=== PATIENT | female | born 1945 | race Caucasian/White ===

== ENCOUNTER → 2024-02-01 06:37 | Day surgery (SDC) | payer MEDICARE, SELFPAY | LOC: GI 06:37 | PROVIDERS: ATTENDING PHYSICIAN Surgery; FAMILY PHYSICIAN Family Medicine | DX: R19.4 Change in bowel habit (principal); K57.30 Diverticulosis of large intestine without perforation or abscess without bleeding; Z98.0 Intestinal bypass and anastomosis status; D12.2 Benign neoplasm of ascending colon; D12.3 Benign neoplasm of transverse colon | CPT/HCPCS: 45385; 88305 ==

== ENCOUNTER 2024-02-15 22:33 | Observation (INO) | payer MEDICARE, SELFPAY ==
[2024-02-15 15:47] VITALS: BP 196/76; BMI 30.9
[2024-02-15 18:25] VITALS: BP 193/91
[2024-02-15 18:35] VITALS: BP 193/91
[2024-02-15] MEDS: MORPHINE SULFATE 2 MG IV (19:03)
[2024-02-15] MEDS: ZOFRAN 4 MG IV (19:04)
[2024-02-15 19:16] LABS: % Basophils 0.3 % (0-2); % Immature Granulocytes 1.4 % (0-0.5); % Lymphocytes 13.4 % (20.5-51.1); % Monocytes 2.2 % (1.7-9.3); % Neutrophils 82.7 % (42.2-75.2); Absolute Immature Granulocytes 0.2 10^3/uL (0-0.05); Absolute Lymphocytes 1.5 10^3/uL (1.2-3.4); Absolute Monocytes 0.2 10^3/uL (0.1-0.6); Absolute Neutrophils 9.2 10^3/uL (1.4-6.5); Hematocrit 42.5 % (37.0-47.0); Hemoglobin 14.5 g/dL (12.0-16.0); Mean Corp Hgb Conc. 34.1 g/dL (33.0-37.0); Mean Corpuscular Hgb 30.8 pg (27.0-31.0); Mean Corpuscular Volume 90.2 fL (81.0-99.0); Mean Platelet Volume 9.4 fL (7.4-10.4); Nucleated Red Blood Cells % 0 %; Platelet Count 254 10^3/uL (130-400); Red Blood Cell Count 4.71 10^6/uL (4.20-5.40); Red Cell Dist. Width 14.2 % (11.5-14.5); White Blood Cell Count 11.1 10^3/uL (4.8-10.8)
[2024-02-15 19:17] LABS: Urine Albumin Negative (Neg - Trace); Urine Bilirubin Negative (Negative); Urine Character Clear (Clear); Urine Color Yellow; Urine Glucose Negative (Negative); Urine Ketone Negative (Negative); Urine Leukocyte Trace (Negative); Urine Nitrite Negative (Negative); Urine Occult Blood Negative (Negative); Urine Urobilinogen Negative (Neg - 1+)
[2024-02-15 19:24] LABS: Urine Red Blood Cell 0-2 /HPF (0-2); Urine White Cell 0-2 /HPF (0-5)
[2024-02-15 19:36] LABS: Blood Urea Nitrogen 28 mg/dl (7-17); Calcium 10.2 mg/dl (8.4-10.2); Carbon Dioxide 23 mmol/L (22-30); Chloride 105 mmol/L (98-107); Estimated Creatinine Clearance 65 ml/min; Glucose 151 mg/dl (70-99); Sodium 140 mmol/L (135-145); eGFR > 60.00
[2024-02-15 20:00] VITALS: BP 155/43; BP 171/84
[2024-02-15] MEDS: DILAUDID 0.5 MG IV (20:42)
--- NOTE | 2024-02-15 21:24 | ED.GENMED ---
History of Present Illness
General
Chief Complaint: Back Pain
Source: patient
Exam Limitations: none
Time Seen by Provider: 02/15/24 18:19
Nursing documentation reviewed up to this point in time: agreed with
History of Present Illness
History of Present Illness:
Patient to ED with complaint of low back pain. States symptoms started 2 weeks ago after her colonoscopy. No abdominal pain. No fever/chills. States pain is worse with movement. Now having difficulty with ADL's due to pain. Brought to eD by
friend for eval. No bowel or bladder issues. No weakness in extremities, No saddle paresthesia. Lives alone
Past History
Past History
ED Past Medical History: Asthma, CVA (hemorrhagic stroke in 2007), HTN and Other (diverticulitis,? TIA in 2018); Negative Renal failure (acute renal insufficiency January 2021)
ED Past Surgical History: Appendectomy
Social History
Tobacco: Former smoker
Alcohol: Occasional
Drug: None
Personal:
Living: alone
Family History
Family History: Other (reviewed and noncontributory)
Review of Systems
Review of Systems
Allergies reviewed?: Yes
All Other Systems: ROS reviewed and negative except as documented in HPI and ROS
Constitutional: Reports no symptoms
EENT: Reports no symptoms
Respiratory: Reports no symptoms
Cardiac: Reports no symptoms
ABD/GI: Reports no symptoms
: Reports no symptoms
Musculoskeletal: Reports back pain (low back pain)
Skin: Reports no symptoms
Neurological: Reports no symptoms
Psychiatric: Reports no symptoms
Phy Exam
General Physical Exam
General Presentation: well appearing and mild distress
General age: appears stated age
General Skin: warm and dry
General Habitus: normal
General Mental: alert
General Hydration: appears well hydrated
Cardiovascular Exam
Cardiovascular Exam: regular rate/rhythm
Gastrointestinal Exam
Gastrointestinal Exam: normal bowel sounds, non tender, soft, no organomegaly, non distended and no cva tenderness
Musculoskeletal Exam
Musculoskeletal Exam: back pain (Low back pain) and neuro vasc intact
Skin Exam
Skin Exam: normal color and warm/dry
Psychiatric Exam
Psychiatric Exam: normal mood/affect
Course
Orders/Labs/Results
Orders:
Orders
02/15/24 18:38
Morphine Sulfate 2 mg IV NOW STA
Ondansetron Injectable [Zofran] 4 mg IV NOW STA
02/15/24 19:03
Basic Metabolic Panel Urgent
Complete Blood Count/With Diff Urgent
Urinalysis Reflex To Culture Urgent
Date Specimen was Collected: 02/15/24
Time Specimen was Collected: 18:41
Urine Microscopic Reflex Cult Urgent
02/15/24 19:42
Lumbar Spine Complete, 4 View [CR Lumbar Spine Comp Min 4 Vw*] Urgent
Comment:
Reason For Exam: pain
02/15/24 20:32
HYDROmorphone [Dilaudid] 0.5 mg IV NOW STA
02/15/24 21:55
Admit/Transfer Patient As Directed
Co-Sign Provider:
Level of Care: Observation services
Assign to:: Medical/Surgical
Physician / Group: [email or web address]
Diagnosis: Intractable LBP, acute gait dysfunction, acute FTT at home
02/15/24 22:00
Code Status As Directed
Resuscitation Status: Full Code
Abnormal Lab Results
02/15/24
19:03
WBC 11.1 H 10^3/uL
(4.8-10.8)
Abs Immat Gran (auto) 0.2 H 10^3/uL
(0-0.05)
Absolute Neuts (auto) 9.2 H 10^3/uL
(1.4-6.5)
Immature Gran % 1.4 H %
(0-0.5)
Neutrophils % 82.7 H %
(42.2-75.2)
Lymphocytes % 13.4 L %
(20.5-51.1)
BUN 28 H mg/dl
(7-17)
Glucose 151 H mg/dl
(70-99)
Leukocyte Esterase Rfl Trace A
(Negative)
02/15/24 19:03
02/15/24 19:03
Vital Signs
Initial and Last Documented VS:
Initial Vital Signs
Temp Pulse Resp BP Pulse Ox
97.9 F 82 16 196/76 97
02/15/24 15:47 02/15/24 15:47 02/15/24 15:47 02/15/24 15:47 02/15/24 15:47
Last Documented Vital Signs
Temp Pulse Resp BP Pulse Ox
97.9 F 58 21 185/56 93
02/15/24 15:47 02/15/24 22:30 02/15/24 22:30 02/15/24 22:15 02/15/24 22:30
*Radiology
Radiology exam reviewed: radiology read reviewed
*Pulse Oximetry
Patient hypoxic: no
*Critical Care Note
Total Time (30-74mins, 75-104mins- exclusive of procedures): Not Applicable
Update Note
Update Note:
Some improvement with IV dilaudid. Unable to transfer, ambuate wtihout assistance due to low back pain. She lives alone an does not feel that she can care for self. Will admit to hospitalist for pain control. PT eval
ED Attending Note
-
Portions of this chart may have been created with voice recognition software.� Occasional wrong word or��sound alike� substitutions may have occurred due to the inherent limitations of voice recognition software.
Discharge Plan
Departure
Patient Disposition: Admit
Date of Disposition: 02/15/24
Time of Disposition: 21:32
Presentation/result/management discussed w/ accepting MD/DO: Hospitalist
Condition: Fair
Covid-19: Not Applicable
Discharge Problem:
Low back pain, Ambulatory dysfunction
Interventions
Interventions:
*Risk Screen - Suicide Last Done: 02/15/24 15:47
*General Assessment Last Done: 02/15/24 18:35
*Neglect/Abuse Screening Last Done: 02/15/24 15:47
ED- Fall Risk Assessment Last Done: 02/15/24 15:47
*ED COVID-19 Vaccine History Last Done: 02/15/24 18:35
ED-Musculoskeletal Assessment Last Done: 02/15/24 18:39
Musculoskeletal Injury Exam
Musculoskeletal Injury Exam
Bilateral Lower Back:
Pain with Movement?: Moderate
Tender to palpation?: Moderate
Soft tissue swelling?: None
External deformity and angulation?: None
Joint effusion?: None
Contusion?: None
Strain- Sprain- Tear (Connective tissue injury)?: Moderate
Crepitus with movement?: No
Joint instability?: No
Malalignment/deformity?: No
Range of motion: Limited
Distal skin color and temperature: normal-warm & good color
Capillary Refill: normal
Normal distal neurovascular exam?: Yes
--- NOTE | 2024-02-15 21:50 | HPS.HSE ---
Family Physician
-
Family Physician: Lance Stokes
Chief Complaint
-
Low back pain
History of Present Illness
78F Lives alone BIB friend HX HTN, prior CVA with residual Rt -sided weakness, use RW at home , mild intermittent asthma, recurrent diverticulitis (most recent admission 10/12) with enterocolic fistula s/p robotic assisted sigmoidectomy in 2020
seen at ER for evalaution of LBP
Low back pain
- onset 2 weeks ago following colonoscopy
- Denied trauma
- increased pain with movements
- Unable to do ADL and unable to ambulate due to LBP
- Denied red flag signs such as bowel or bladder issues. No weakness in extremities, No saddle paresthesia.
Medical History
Past Medical History
Past Medical History: Reports Other
Additional Past Medical History:
Asthma
CVA (hemorrhagic stroke in 2007) with residual Rt -sided weakness
Chr ambulatory dysfunction - use RW at home post CVA
HTN
Diverticulitis
? TIA in 2018
Past Surgical History: Reports Other
Additional Past Surgical History:
Appendectomy
s/p sigmoidectomy
Social History
Tobacco: Non-smoker
Alcohol: Occasional
Living: Alone
Family History
Family History: Not pertinent
Allergies / Home Medications
Allergies reflects when Allergies were last updated in [employer].
Home Medications with original date entered in [employer]
Allergy/Medication List:
Allergies
Allergy/AdvReac Type Severity Reaction Status Date / Time
penicillin V Allergy Hives Verified 02/15/24 15:54
10-12 yrs
ago, MILD
no
anaphylaxis;
OK w/ ceph
saccharin Allergy Anaphylaxis-Throat Verified 02/15/24 15:54
closed
Home Medications
aspirin 81 mg tablet,delayed release 81 mg PO DAILY Blood clot prevention/tx 09/03/20
levothyroxine 50 mcg tablet 50 mcg PO DAILY@0700 Thyroid 09/03/20
loratadine 10 mg tablet 10 mg PO DAILY Allergies 09/03/20
omega 9-xca-tvt-fish oil 300 mg-1,000 mg capsule (Fish Oil) 1 ea PO BID Supplement 09/08/20
Saccharomyces boulardii 250 mg capsule 250 mg PO DAILY 02/18/21
acetaminophen 650 mg tablet,extended release 650 mg PO BIDPRN PRN mild pain/fever 02/15/24
amlodipine 5 mg tablet 5 mg PO DAILY 02/15/24
atorvastatin 10 mg tablet 10 mg PO QPM 02/15/24
benzonatate 100 mg capsule 100 - 200 mg PO TIDPRN PRN cough 02/15/24
cholecalciferol (vitamin D3) 50 mcg (2,000 unit) tablet 50 mcg PO DAILY 02/15/24
fluticasone propionate 50 mcg/actuation nasal spray,suspension 2 spray intranasal DAILY 02/15/24
furosemide 40 mg tablet 40 mg PO DAILY 02/15/24
onabotulinumtoxinA 100 unit solution for injection (Botox) 0 unit SC .UNKNOWN 02/15/24
prednisone 20 mg tablet 20 mg PO DAILY 02/15/24
tizanidine 4 mg tablet 4 mg PO DAILY 02/15/24
valsartan 320 mg tablet 320 mg PO DAILY 02/15/24
Review of Systems
-
Constitutional: Reports No Symptoms
EENT: Reports No Symptoms
Respiratory: Reports No Symptoms
Cardiac: Reports No Symptoms
Abdomen/GI: Reports No Symptoms
: Reports No Symptoms
Musculoskeletal: Reports See HPI
Skin: Reports No Symptoms
Neurological: Reports No Symptoms
Endocrine: Reports No Symptoms
Hematologic/Lymphatic: Reports No Symptoms
Psych: Reports No Symptoms
Physical Exam
Vital Signs
Vital Signs
Temp Pulse Resp BP Pulse Ox
97.9 F 77 12 155/43 93
02/15/24 15:47 02/15/24 18:35 02/15/24 18:35 02/15/24 20:00 02/15/24 20:15
Physical Exam
General: Well Nourished, No Apparent Distress (when lying still ), Conversant and Obese (BMI 30.9 )
HEENT: NormoCephalic, Anicteric and Moist mucous membranes
Respiratory: Clear
Cardiac: S1/S2 and Regular Rhythm; No Murmur
Breast: Deferred by me
GI: Soft, Non Tender, Non Distended and Normal Bowel Sounds
Genito-urinary: Deferred by me
Musculoskeletal: No Edema
Neuro: AO x 3, No Motor Deficits (no acute , no sensory defict ) and Other (chr Rt sided residaul weakness in Veda s/p CVA )
Laboratory Results
-
02/15/24 19:03
02/15/24 19:03
Laboratory Results
Total Bilirubin Cancelled 02/15/24 19:03
AST Cancelled 02/15/24 19:03
ALT Cancelled 02/15/24 19:03
Alkaline Phosphatase Cancelled 02/15/24 19:03
Data Reviewed
-
Diagnostic Radiology: Report Reviewed by me
Lab Data: Labs Reviewed by me
Impression/Plan
-
Reviewed VS: BP 190/90 ---> 155/45 POx low 90s on RA
Data
WCC 11s
BUN 28
nl eGFR
BG 150
NEG UA
XR Lx spine
Chronic degenerative changes of the lumbar spine. No radiographic evidence for an acute osseous abnormality.
ASSESSMENT & PLAN
Pending Rx reconciliation
Intractable LBP ( Rt > Lt ) without any red flag signs
- No bowel or bladder issues. No weakness in extremities, No saddle paresthesia.
- No pain radiatio from the back
- acute FTT at home : Elderly who lives alone with acute on chronic ambulatory dysfunction
- Unable to transfer and ambulate without assistance due to low back pain
- Supportive care: narcotics pain control with hold for excessive sedation
- add gabapentin hold for excessive sedation
- add Medrol dose pack
- BW and Bladder regime
- PT/OT consult
HX prior CVA with residual Rt -sided weakness
- chr ambulatory dysfunction - use RW at h
Essential HTN
- Hi BP due to pain
- cont OP Meds after Rx reconciliation
HLD
- cont Statin
HX Hypothyroidism
- cont LT4
DVT Px: LMWH
Code: Full code
OP MS
[2024-02-15 22:15] VITALS: BP 185/56
[2024-02-15 22:33] VITALS: BMI 30.7
[2024-02-15 23:00] VITALS: BP 170/59
[2024-02-15] MEDS: SENOKOT 17.2 MG PO (23:57)
[2024-02-15] MEDS: NEURONTIN 100 MG PO (23:57)
[2024-02-15] MEDS: COLACE 100 MG PO (23:57)
[2024-02-15] MEDS: NORVASC 5 MG PO (23:58)
[2024-02-16] VITALS (12 sets, daily range): BP systolic 115–179; BP diastolic 48–84; PULSE 66; O2SAT 92; BMI 30.7; BMI 31.7
[2024-02-16] MEDS: MEDROL 24 MG PO (00:04)
[2024-02-16] MEDS: TYLENOL 650 MG PO ×6 (00:07→23:00)
[2024-02-16] MEDS: TYLENOL PO (05:41)
[2024-02-16] MEDS: SYNTHROID 50 MCG PO (06:29)
[2024-02-16] MEDS: ROXICODONE 5 MG PO (06:38)
--- NOTE | 2024-02-16 07:25 | W.PN.HOSP.TC ---
Addendum entered and electronically signed by Juan A Smith MD 02/16/24 11:29:
I saw and evaluated the patient. I reviewed the resident�s note and agree with findings and plan as documented in the resident�s note.
Patient presented with back pain that has been progressing since February 01, 2024 after colonoscopy. Denies bowel or bladder incontinence or saddle anesthesia.
Gen: NAD, AAOx3.
Eyes: EOMI, PERRLA, no scleral icterus.
Neck: supple.
CV: RRR, +S1/S2, no m/r/g.
Resp: CTAB, no rales, wheezes, or rhonchi.
Abd: +BS, soft, NT, ND
Skin: No rashes.
Neuro: CN 2-12 intact
Psych: Normal mood and affect.
L-spine Xray: Chronic degenerative changes of the lumbar spine. No radiographic evidence for an acute osseous abnormality.
Low back pain:
-Progressively worsening over the last 15 days without alarm symptoms
-Agree with Medrol Dosepak
-No indication for narcotics, stop narcotics
-Neurontin started
-Tylenol as needed
-No further indication for hospitalization, medically cleared for discharge, case management aware.
Original Note:
Today's Communication/Plan
-
Continue pain management
Assessment / Plan
Assessment / Plan
# Intractable LBP ( Rt > Lt ) without any red flag signs
- No bowel or bladder issues. No weakness in extremities, No saddle paresthesia.
- No pain radiation from the back
- XR Lx spine
Chronic degenerative changes of the lumbar spine. No radiographic evidence for an acute osseous abnormality.
- Supportive care: narcotics pain control with hold for excessive sedation
- Oxy 5mg po q4 prn
- IV dilaudid 0.25 q4 prn
- Methylprednisone taper dose
- Gabapentin continue
- Consideration for updated lumbar MRI
# Elderly who lives alone with acute on chronic ambulatory dysfunction
- Unable to transfer and ambulate without assistance due to low back pain
- PT/OT consult
#HX prior CVA with residual Rt -sided weakness
- chr ambulatory dysfunction - use RW at home
#Essential HTN
- elevated-likely due to pain
- cont OP Meds after Rx reconciliation
#HLD
- cont Statin
# Hypothyroidism
- cont levothyroxine
Code: Full code
DVT prophylaxis: Heparin
Anticipated Discharge: Within 24 hours
Subjective/Interval History
-
Date of Service: February 16, 2024
Objective Data
-
Labs:
Laboratory Results
02/15/24
19:03
Sodium 140
Potassium
Chloride 105
Carbon Dioxide 23
BUN 28 H
Creatinine 0.8
Glucose 151 H
Calcium 10.2
Total Bilirubin Cancelled
AST Cancelled
ALT Cancelled
Alkaline Phosphatase Cancelled
Vital Signs:
Vital Signs
Temp Pulse Resp BP Pulse Ox
97.9 F 78 18 115/49 92
02/15/24 15:47 02/16/24 00:00 02/16/24 00:00 02/16/24 04:00 02/16/24 04:30
Review of Systems
-
History Source: Patient and Other
Constitutional: Reports Other (Low back pain); Denies Fever or Weight Loss
Respiratory: Denies Cough
Cardiac: Denies Chest Pain
Abdomen/GI: Denies Abdominal Pain
Musculoskeletal: Reports Muscle Weakness (Chronic right lower extremity)
Skin: Denies Rash
Neuro: Denies Dizzy or Headache
Hematologic / Lymphatic: Denies Bleeding
Physical Exam
-
General: Well Developed, Well Nourished and Appears in Distress
HEENT: Normocephalic and Atraumatic
Respiratory: Clear to Auscultation
Cardiac: Regular Rhythm
GI: Soft, Nontender and Nondistended
Musculoskeletal: Other (Pain with lumbar flexion, extension and axial rotation. Tender to touch in the lower thoracic upper lumbar spine.)
Skin: Warm and Dry
Neuro: Awake, Alert, Oriented and Central Nerve's Intact; Negative Tremors, Facial Droop or Other (Chronic diffuse decrease sensation of the right leg, decreased strength right leg)
Psych: Calm
Data Reviewed
-
Diagnostic Radiology: Image personally visualized and interpreted, Report Reviewed by me, Discussed with Physician and Discussed with Patient
Labs: Labs Reviewed by me, Discussed with Physician and Discussed with Patient
[2024-02-16] MEDS: NEURONTIN 100 MG PO ×3 (07:47→23:00)
[2024-02-16] MEDS: ASPIR LOW (ENTERIC COATED) 81 MG PO (07:47)
[2024-02-16] MEDS: DIOVAN 320 MG PO (07:47)
[2024-02-16] MEDS: HEPARIN 5000 UNITS SC ×2 (07:47→20:25)
[2024-02-16] MEDS: LIPITOR 10 MG PO (07:47)
[2024-02-16] MEDS: LASIX 40 MG PO (07:47)
[2024-02-16] MEDS: COLACE 100 MG PO (07:48)
[2024-02-16] MEDS: SENOKOT PO ×2 (07:49→20:27)
[2024-02-16] MEDS: MEDROL 20 MG PO (09:31)
--- NOTE | 2024-02-16 11:43 | CM ---
Addendum entered by David Salmon 02/16/24 16:05:
Per [facility], [facility] provided pending authorization. Pt's clinical faxed to [facility] and per [facility] director of infection control they will fax pt's clinical to [facility] to obtain a full auth.
D/C plan: [facility] when a full auth is obtained.
Addendum entered by David Salmon 02/16/24 15:29:
[facility] denied a referral
[facility] is out of network and will be $240.00 co-pay for day 1-40.
[facility] and [facility] offered a bed.
CM discussed it with the pt and pt preferred [facility].
An auth is initiated with [facility] for SNF level of care at [facility] ( ), accepting MD Luisa Cruz ( ). CM spoke to [facility] CYRIL Kitchen and pt is approved for 10 initial days for SNF level of care at [facility] starting
today 02/16/24 till 02/25/24, Auth is [id number]. [facility] CM stated that pt can be discharged to [facility] today.
CM spoke to [facility] director of infection control and she would like to confirm insurance auth with [facility] and she will let me know.
D/C plan: [facility].
CM will follow to assist pt with discharge to [facility].
Original Note:
CM following re: discharge planning.
CM consulted to assist pt with discharge planning.
Reviewed pt's chart, met with pt and pt's son and pt's daughter at bedside.
Pt is an 78 year old female, admitted with OBS status and primary dx of back pain. OBS status explained to the pt, pt expressed her understanding. BOOTH letter signed, placed in CM folder, pt has a copy.
Pt reports she lives alone in [facility] apartment, 4th floor with elevator, no steps to enter, has 4 supportive children. Pt reports she ambulates with a walker and now she cannot do it and needs to go to rehab facility.
PT evaluation noted - SNF level of care recommended. Both pt and her family expressed their agreement. A list of SNFs from medicare.gov provided. Pt reprts she was before at [facility] and she did not have a good experience. Following SNFs
preferred: [facility], [facility], [facility], [facility]. A referral to above SNFs made. Awaiting for determination. pt will need an auth from [facility] medicare for skilled services at accepted SNF.
PCP: Lance Stokes
Pharmacy: [facility] pharmacy;
D/C plan: preferred and accepted SNF. Awaiting for determination.
CM will follow to assists pt with discharge to an accepted SNF.
--- NOTE | 2024-02-16 15:45 | PTCARENOTE ---
Received pt from ER. Pt awake, alert and oriented x3. Pt c/o pain in right lower back, tolerable at this time. Pt bp elevated, other VSS, 95% on RA.Spoke with MD orders for IV hydralazine, given per orders repeat bp improved to 137/66. Pt oriented
to room, call martinez within reach, plan of care continues.
[2024-02-16] MEDS: APRESOLINE 10 MG IV (17:11)
[2024-02-16] MEDS: COLACE PO (20:27)
[2024-02-16] MEDS: NORVASC 5 MG PO (23:00)
[2024-02-17] MEDS: TYLENOL 650 MG PO ×3 (04:22→14:12)
[2024-02-17] MEDS: SYNTHROID 50 MCG PO (04:23)
--- NOTE | 2024-02-17 07:09 | W.PN.HOSP.TC ---
Addendum entered and electronically signed by Juan A Smith MD 02/17/24 13:19:
Total time spent on d/c = 32 min. This included today's physical exam, progress note, review of laboratory and diagnostic data, preparation of discharge documents and prescriptions, and discussions about the pt's hospital course and discharge plan
with the patient and other medical staff manager involved in the patient's care.
Addendum entered and electronically signed by Juan A Smith MD 02/17/24 12:22:
I saw and evaluated the patient. I reviewed the resident�s note and agree with findings and plan as documented in the resident�s note.
Patient presented with back pain that has been progressing since February 01, 2024 after colonoscopy. Denies bowel or bladder incontinence or saddle anesthesia.
Gen: NAD, AAOx3.
Eyes: EOMI, PERRLA, no scleral icterus.
Neck: supple.
CV: RRR, +S1/S2, no m/r/g.
Resp: CTAB, no rales, wheezes, or rhonchi.
Abd: +BS, soft, NT, ND
Skin: No rashes.
Neuro: CN 2-12 intact
Psych: Normal mood and affect.
L-spine Xray: Chronic degenerative changes of the lumbar spine. No radiographic evidence for an acute osseous abnormality.
Low back pain:
-Progressively worsening over the last 15 days without alarm symptoms
-Agree with Medrol Dosepak
-No indication for narcotics (which have been stopped)
-Neurontin started, can uptitrate in 1-2 days
-Tylenol as needed (can change to standing)
-remains medically cleared for discharge, case management aware.
Original Note:
Today's Communication/Plan
-
[facility] when a full auth is obtained.
Assessment / Plan
Assessment / Plan
# Intractable LBP ( Rt > Lt ) without any red flag signs
- No bowel or bladder issues. No weakness in extremities, No saddle paresthesia.
- No pain radiation from the back
- XR Lx spine
Chronic degenerative changes of the lumbar spine. No radiographic evidence for an acute osseous abnormality.
- Supportive care continue
- Methylprednisone taper dose
- Gabapentin continue
- Tylenol as needed
# Elderly who lives alone with acute on chronic ambulatory dysfunction
- Unable to transfer and ambulate without assistance due to low back pain
- PT/OT input appreciated- recs for skilled rehab
#HX prior CVA with residual Rt -sided weakness
- chr ambulatory dysfunction - use RW at home
#Essential HTN
- elevated-likely due to pain
- cont OP Meds after Rx reconciliation
#HLD
- cont Statin
# Hypothyroidism
- cont levothyroxine
Code: Full code
DVT prophylaxis: Heparin
Anticipated Discharge: Today
Subjective/Interval History
-
Date of Service: February 17, 2024
Objective Data
-
Labs:
Laboratory Results
02/17/24
06:00
WBC Pending
Hgb Pending
Hct Pending
Plt Count Pending
Vital Signs:
Vital Signs
Temp Pulse Resp BP Pulse Ox
99.7 F 74 14 155/61 93
02/16/24 23:37 02/16/24 23:37 02/16/24 23:37 02/16/24 23:37 02/16/24 23:37
Review of Systems
-
History Source: Patient
Constitutional: Reports Other (Low back pain.)
Respiratory: Denies Cough
Cardiac: Denies Chest Pain
Abdomen/GI: Denies Abdominal Pain
Musculoskeletal: Denies Joint Pain
Neuro: Denies Dizzy
Hematologic / Lymphatic: Denies Bleeding
Physical Exam
-
General: Well Developed, Well Nourished and Appears in Distress (LBP with ambulation)
HEENT: Normocephalic and Atraumatic
Respiratory: Clear to Auscultation
Cardiac: Regular Rhythm
GI: Soft, Nontender and Nondistended
Skin: Warm and Dry
Neuro: Awake, Alert and Oriented
Psych: Calm
Data Reviewed
-
Labs: Labs Reviewed by me, Discussed with Physician and Discussed with Patient
[2024-02-17 07:25] VITALS: BP 148/67
[2024-02-17 08:01] LABS: Hematocrit 41.6 % (37.0-47.0); Mean Corp Hgb Conc. 33.7 g/dL (33.0-37.0); Mean Corpuscular Hgb 31.6 pg (27.0-31.0); Mean Corpuscular Volume 93.9 fL (81.0-99.0); Mean Platelet Volume 9.8 fL (7.4-10.4); Platelet Count 260 10^3/uL (130-400); Red Blood Cell Count 4.43 10^6/uL (4.20-5.40); Red Cell Dist. Width 14.5 % (11.5-14.5); White Blood Cell Count 11.3 10^3/uL (4.8-10.8)
[2024-02-17] MEDS: NEURONTIN 100 MG PO (09:41)
[2024-02-17] MEDS: SENOKOT 17.2 MG PO (09:42)
[2024-02-17] MEDS: LASIX 40 MG PO (09:42)
[2024-02-17] MEDS: COLACE 100 MG PO (09:42)
[2024-02-17] MEDS: LIPITOR 10 MG PO (09:42)
[2024-02-17] MEDS: ASPIR LOW (ENTERIC COATED) 81 MG PO (09:42)
[2024-02-17] MEDS: HEPARIN 5000 UNITS SC (09:43)
[2024-02-17] MEDS: DIOVAN 320 MG PO (10:09)
[2024-02-17 11:15] VITALS: BP 123/68
--- NOTE | 2024-02-17 11:47 | CM ---
Bianca is ready for discharge to [facility] today. SNF authorization is pending and anticipated to be finalized this afternoon. Ambulance transport requested for 3:00/4:00 pm.
I met with Bianca to discuss plans; she was hoping to be able to stay at [facility] and have therapy at [facility]. We discussed the different rehabs and I explained to Bianca that [facility] would require at least 3 hours of therapy per day.
With her back pain it would be difficult for her to be able to do 3 hours. Bianca agreed, stating she thought it would be more convenient for her family if she was at the hospital.
Bianca is agreeable to transfer to [facility] today. I called her daughter, also Bianca, to provide the address and telephone number for [facility], and also advised that ambulance transportation for her mother is anticipated around
3pm-4pm today.
Plan: Discharge to [facility]
Report: [phone]
--- NOTE | 2024-02-17 11:52 | W.DCSUMMARY ---
Addendum entered and electronically signed by Juan A Smith MD 02/17/24 13:32:
Read, reviewed, and agree. See same day progress note for additional details.
Original Note:
Discharge Summary
Discharge Data
Date of Admission: 02/15/24
Date of Discharge: 02/17/24
-
Pending Results: No
Hospital Course
Discharging Physician : Aleksandr Bradley MD ; Juan A Smith MD
Disposition : alf facility
Primary care physician : Lance Stokes MD
Principal Discharge diagnosis : Intractable LBP ( Rt > Lt ),
Chronic Discharge diagnosis : Chronic ambulatory dysfunction, hypertension, hyperlipidemia, hypothyroidism, history of CVA with residual right-sided weakness, history of KATHERINE, asthma
Hospital Course: 78-year-old female with history of TIA, CVA and chronic right-sided weakness presented to the emergency department with complaints of sudden onset low back pain. She reports she does have a history of lumbar disc herniations.
Patient reported that the recent low back pain started after she had colonoscopy and thinks she was laying in a wrong position. She denied any trauma. Denied any red flags including bowel and bladder issues. There is no saddle paresthesia on exam
during his stay at the hospital. Initially she was given narcotics occluding oxycodone and Dilaudid for pain control. However she was started on a steroid taper dose and gabapentin. She was provided with instructions upon discharge. PT/OT was
also consulted and the recommendation was to consider skilled rehab to progress functional strength, balance and endurance. It was considered reasonable to reduce fall risk and facilitate safe eventual return to home. Patient verified
understanding. Her condition at this time does not warrant any further imaging studies. She has been declared medically stable for discharge to SNF at this time.
Important imaging findings : CR Lumbar Spine:
Chronic degenerative changes of the lumbar spine. No radiographic evidence for an acute osseous abnormality.
Discharge Plan
-
Patient Disposition: [facility]/SNF
Discharge Diagnosis/Procedures: Intractable LBP ( Rt > Lt ), chronic ambulatory dysfunction, hypertension, hyperlipidemia, hypothyroidism, history of CVA with residual right-sided weakness, asthma
Condition: Good
Diet: Low Cholesterol
Activity: As tolerated
Driving Restrictions: As prior to admission
Bathing Restrictions: None
Other Services: PT and OT
Referrals:
Lance Stokes MD [Family Provider] - in less than 1 week
Additional Discharge Medication Instructions: Take Tylenol 325 mg 1-2 tablet by mouth every 4 hours while awake
P gabapentin 100 mg capsule by mouth 3 times a day
Take methylprednisolone 4 mg 3 tablets on 02/18/2024
Take methylprednisolone 4 mg 2 tablets by mouth on 02/19/2024
Take methylprednisolone 4 mg 1 tablet by mouth on 02/20/2024
Take tamsulosin 0.4 mg capsule daily
Prescriptions:
New
acetaminophen 325 mg Tablet
650 mg PO Q4HWA Qty: 0 0RF
tamsulosin 0.4 mg Capsule
0.4 mg PO DAILYPRN PRN (Reason: bladder scan volume > 400 mL) Qty: 0 0RF
methylprednisolone 4 mg Tablet
12 mg PO ONCE Qty: 0 0RF
Rx Instructions:
02/18/24
gabapentin 100 mg Capsule
100 mg PO TID Qty: 0 0RF
methylprednisolone 4 mg Tablet
8 mg PO ONCE Qty: 0 0RF
Rx Instructions:
02/19/24
methylprednisolone 4 mg Tablet
4 mg PO ONCE Qty: 0 0RF
Rx Instructions:
02/20/24
Continued
aspirin 81 MG tablet,delayed release (DR/EC)
81 mg PO DAILY
levothyroxine 50 MCG tablet
50 mcg PO DAILY@0700
loratadine 10 MG tablet
10 mg PO DAILYPRN PRN (Reason: allergies)
omega 6-xzw-vbf-fish oil [Fish Oil] 1 EACH capsule
1 ea PO DAILY
furosemide 40 mg tablet
40 mg PO DAILY
atorvastatin 10 mg tablet
10 mg PO DAILY
tizanidine 4 mg tablet
4 mg PO HS
Botox 100 unit recon soln
5 unit SC [id number]
amlodipine 5 mg tablet
5 mg PO HS
acetaminophen 650 mg Tablet Extended Release
650 mg PO BIDPRN PRN (Reason: mild pain/fever)
valsartan 320 mg tablet
320 mg PO DAILY
fluticasone propionate 50 mcg/actuation [place],Suspension
2 spray INTRANASAL DAILY
cholecalciferol (vitamin D3) 50 mcg (2,000 unit) Tablet
50 mcg PO DAILY
Discontinued
prednisone 20 mg tablet
20 mg PO DAILY
Patient Comments:
02/15/2024: For 4 more days. pt was on a small taper 2 tabs daily for 5 days, then 1 tab daily for 5 days.
Discharge Orders:
Discharge Patient (As Directed); Ordered 02/17/24
Ordered By: Juan A mSith
Discharge Date and Time
Print Language: HUNGARIAN
--- NOTE | 2024-02-17 13:13 | CM ---
Authorization for transfer to [facility] has been obtained. Ambulance transport scheduled for 4pm transfer. Pt's daughter called and provided her with the address and phone number for [facility].
I spoke with Bianca who is nervous going to a facility that she does not know. Support provided.
Plan: Discharge to [facility] today via ambulance at 4pm today.
[facility] authorization [id number]
Report: [phone]
[2024-02-17] MEDS: MEDROL 16 MG PO (14:12)
[2024-02-17 14:15] VITALS: BP 121/67
== END 2024-02-17 16:24 ==
LOC: 4 EAST ACU 22:33
PROVIDERS: Nurse Practitioner; ADMITTING PHYSICIAN Internal Medicine; ATTENDING PHYSICIAN Internal Medicine; EMERGENCY PHYSICIAN Student in an Organized Health Care Education/Training Program; FAMILY PHYSICIAN Family Medicine
DX: M47.816 Spondylosis without myelopathy or radiculopathy, lumbar region (principal); M54.9 Dorsalgia, unspecified; J45.20 Mild intermittent asthma, uncomplicated; I10 Essential (primary) hypertension; G89.29 Other chronic pain; I69.351 Hemiplegia and hemiparesis following cerebral infarction affecting right dominant side; I70.0 Atherosclerosis of aorta; R62.7 Adult failure to thrive; E03.9 Hypothyroidism, unspecified; E78.5 Hyperlipidemia, unspecified; R26.2 Difficulty in walking, not elsewhere classified; Z60.2 Problems related to living alone; Z87.891 Personal history of nicotine dependence; Z87.19 Personal history of other diseases of the digestive system; Z90.49 Acquired absence of other specified parts of digestive tract; Z88.0 Allergy status to penicillin; Z79.82 Long term (current) use of aspirin; Z79.890 Hormone replacement therapy; Z79.52 Long term (current) use of systemic steroids
CPT/HCPCS: 72110; 80048; 81003; 81015; 85025; 85027; 96374; 96375; 99284; G0378

== ENCOUNTER → 2024-09-05 12:51 | Outpatient (REF) | payer MEDICARE, SELFPAY | LOC: RCS 12:51 | PROVIDERS: ATTENDING PHYSICIAN Family Medicine | DX: R07.9 Chest pain, unspecified (principal); R06.02 Shortness of breath; E78.2 Mixed hyperlipidemia; I10 Essential (primary) hypertension; Z86.73 Personal history of transient ischemic attack (TIA), and cerebral infarction without residual deficits | CPT/HCPCS: 71046; 93306 ==

== ENCOUNTER 2025-03-08 15:15 | Inpatient (IN) | payer OTHER, SELFPAY ==
[2025-03-08] VITALS (10 sets, daily range): BP systolic 145–200; BP diastolic 57–124; BMI 28.3
[2025-03-08 09:57] LABS: Hematocrit 40.8 % (37.0-47.0); Hemoglobin 12.8 g/dL (12.0-16.0); Mean Corp Hgb Conc. 31.4 g/dL (33.0-37.0); Mean Corpuscular Volume 95.1 fL (81.0-99.0); Nucleated Red Blood Cells % 0 %; Platelet Count 215 10^3/uL (130-400); Red Cell Dist. Width 13.9 % (11.5-14.5)
[2025-03-08 10:09] LABS: ALT (SGPT) 14 U/L (0-35); AST (SGOT) 15 U/L (14-36); Albumin 4.4 g/dl (3.5-5.0); Alkaline Phosphatase 66 U/L (38-126); Blood Urea Nitrogen 28 mg/dl (7-17); Calcium 9.2 mg/dl (8.4-10.2); Carbon Dioxide 27 mmol/L (22-30); Chloride 107 mmol/L (98-107); Estimated Creatinine Clearance 50 ml/min; Glucose 117 mg/dl (70-99); Magnesium 2.1 mg/dl (1.6-2.3); Potassium 4.1 mmol/L (3.5-5.1); Sodium 143 mmol/L (135-145); Total Protein 6.9 g/dl (6.3-8.2); eGFR 56.60
--- NOTE | 2025-03-08 12:54 | ED.GENMED ---
History of Present Illness
General
Chief Complaint: Headache
Source: patient and ambulance crew
Time Seen by Provider: 03/08/25 09:46
Nursing documentation reviewed up to this point in time: agreed with
History of Present Illness
History of Present Illness:
Note:
CHIEF COMPLAINT(S)
Severe headache and history of stroke with right-sided weakness.
HISTORY OF PRESENT ILLNESS
The patient is an 79-year-old female presenting with a severe headache that began on Tuesday. The headache is located at the back of the head and is described as extremely severe. The patient mentioned, 'the head is terrible.' There is no new
weakness reported, although the patient has a history of being paralyzed on the right side due to a previous stroke. The patient took one Tylenol Arthritis (650 mg) at approximately 7:30 to 8:00 AM for the headache. The patient is also on baby
aspirin, which she took with her other morning medications.
PAST MEDICAL AND SURGICAL HISTORY
The patient has a history of stroke, leading to paralysis on the right side. Surgical history includes an appendectomy approximately 40 to 50 years ago and gallbladder removal around three years ago due to cholelithiasis.
REVIEW OF SYSTEMS
- Neurological: Severe headache at the back of the head; known right-sided weakness due to prior stroke.
- Musculoskeletal: Right-sided weakness; difficulty moving the right leg due to previous paralysis.
PHYSICAL EXAM
General: Alert, in no acute distress.
Cardiovascular: Heart rate 59 beats per minute; normal S1 and S2 heart sounds, no murmurs.
Respiratory: Lungs clear bilaterally, no respiratory distress.
Musculoskeletal: Mild weakness of the right upper extremity and left lower extremity due to previous paralysis.
Neurological: Cranial nerves II to XII intact except for noted mild right-sided weakness from past medical history.
PLAN
- A computed tomography (CT) scan of the head to evaluate the cause of the headache.
- Administer appropriate medication for headache relief.
DIFFERENTIAL DIAGNOSIS
The Differential Diagnosis includes, in no particular order and is not limited to:
1. Tension headache
2. Migraine headache
3. Cerebrovascular accident (CVA) or transient ischemic attack (TIA)
4. Cerebral hemorrhage
5. Meningitis
6. Brain tumor
7. Sinusitis
8. Medication overuse headache
9. Temporal arteritis
10. Hypertension-related headache
CARE-UPDATE
03/08/25 - 13:56
Intractable headache, normal ct angiography head and neck.
Disposition:
SUMMARY OF ENCOUNTER
The patient, an 79-year-old female with a history of stroke and right-sided weakness, presented to the emergency department with a severe headache. The headache started on Tuesday and is localized at the back of the head, described as extremely
severe. The patient has a known history of paralysis on the right side but reported no new weakness. A CT head and neck angiography was performed, showing no acute findings. Due to the persistence of the headache and the severity of symptoms, the
patient is admitted to the hospital for further evaluation and management.
DISPOSITION
Admit
ASSESSMENT
Intractable headache potentially linked to past chemotherapy treatments.
INDEPENDENT REVIEW OF LABS AND INTERPRETATION OF TESTS
- My independent interpretation of CT head and neck angiography reveals no acute findings.
PLAN
- The patient is admitted to the hospital for further evaluation and management due to severe intractable headache.
MEDICATION RECONCILIATION
The patient took acetaminophen (Tylenol) arthritis (650 mg) and is also on a regimen of daily aspirin.
MEDICAL DECISION MAKING
- Complexity of Data Reviewed: Chronic conditions affecting care include a history of stroke and right-sided weakness. The differential diagnosis considered includes tension headache, migraine headache, cerebrovascular accident (CVA) or transient
ischemic attack (TIA), cerebral hemorrhage, meningitis, brain tumor, sinusitis, medication overuse headache, temporal arteritis, and hypertension-related headache.
- Data:
Category 1: The CT head and neck angiography was reviewed and showed no acute findings.
Category 3: Discussion of management with hospitalist for admitting the patient.
DIAGNOSIS
- Intractable headache (R51.9)
- History of cerebrovascular accident (I69.351)
Past History
Past History
ED Past Medical History: Asthma, CVA (hemorrhagic stroke in 2007), HTN and Other (diverticulitis,? TIA in 2018); Negative Renal failure (acute renal insufficiency January 2021)
ED Past Surgical History: Appendectomy
Social History
Tobacco: Former smoker
Alcohol: Occasional
Drug: None
Personal:
Living: alone
Family History
Family History: Other (reviewed and noncontributory)
Phy Exam
Physical Exam
Physical Exam:
.
Course
Orders/Labs/Results
Orders:
Orders
03/08/25 09:30
EKG [Electrocardiogram (*1)] Urgent
Reason for Study: Vertigo / Dizzy
03/08/25 09:31
EKG- Treatment ONCE
03/08/25 09:41
Complete Blood Count/With Diff Urgent
Comprehensive Metabolic Panel Urgent
Magnesium Urgent
03/08/25 10:07
CT Head & Neck Angio W/wo IV Urgent
Comment:
Reason For Exam: headache, neck pain 3 days
Cardiac Monitoring- Treatment ONCE
IV Insert/Care/Rem.- Treatment PRN
03/08/25 10:08
Electrocardiogram (*1) Stat
Reason for Study: Other
Other Reason for Exam: neuro symptoms
EKG- Treatment ONCE
03/08/25 12:53
Diphenhydramine [Benadryl] 25 mg IV NOW STA
Metoclopramide [Reglan] 5 mg IV NOW STA
03/08/25 13:54
Diphenhydramine [Benadryl] 25 mg IV NOW STA
Morphine Sulfate 2 mg IV NOW STA
Abnormal Lab Results
03/08/25
09:41
MCHC 31.4 L g/dL
(33.0-37.0)
Lymphocytes % 19.7 L %
(20.5-51.1)
BUN 28 H mg/dl
(7-17)
Glucose 117 H mg/dl
(70-99)
03/08/25 09:41
03/08/25 09:41
Vital Signs
Initial and Last Documented VS:
Initial Vital Signs
Pulse Resp Pulse Ox
75 20 93
03/08/25 09:28 03/08/25 09:28 03/08/25 09:28
Last Documented Vital Signs
Temp Pulse Resp BP Pulse Ox
97.6 F 113 20 177/69 96
03/08/25 13:44 03/08/25 13:44 03/08/25 13:44 03/08/25 13:44 03/08/25 13:44
*Pulse Oximetry
SaO2: 92
Oxygen Mode of Delivery: Room air
Patient hypoxic: no
*Critical Care Note
Total Time (30-74mins, 75-104mins- exclusive of procedures): Not Applicable
ED Attending Note
-
Portions of this chart may have been created with voice recognition software.� Occasional wrong word or��sound alike� substitutions may have occurred due to the inherent limitations of voice recognition software.
Discharge Plan
Departure
Patient Disposition: Admit
Date of Disposition: 03/08/25
Time of Disposition: 13:55
Admit to: Telemetry
Presentation/result/management discussed w/ accepting MD/DO: Hospitalist
Patient with high blood pressure during this ER visit?: Yes
Condition: Fair
Discharge Problem:
Acute intractable headache
Prescriptions:
No Action
aspirin 81 MG tablet,delayed release (DR/EC)
81 mg PO DAILY
levothyroxine 50 MCG tablet
50 mcg PO DAILY@0700
loratadine 10 MG tablet
10 mg PO DAILYPRN PRN (Reason: allergies)
omega 1-ejk-vph-fish oil [Fish Oil] 1 EACH capsule
1 ea PO DAILY
furosemide 40 mg tablet
20 mg PO DAILY
atorvastatin 10 mg tablet
10 mg PO DAILY
tizanidine 4 mg tablet
4 mg PO HS
Botox 100 unit recon soln
5 unit SC [id number]
amlodipine 5 mg tablet
5 mg PO HS
acetaminophen 650 mg Tablet Extended Release
650 mg PO BIDPRN PRN (Reason: mild pain/fever)
valsartan 320 mg tablet
320 mg PO DAILY
fluticasone propionate 50 mcg/actuation [place],Suspension
2 spray INTRANASAL DAILY
cholecalciferol (vitamin D3) 50 mcg (2,000 unit) Tablet
50 mcg PO DAILY
Referrals:
Lance Stokes MD [Family Provider, Family Practice]
Interventions
Interventions:
*Risk Screen - Suicide Last Done: 03/08/25 09:31
*General Assessment Last Done: 03/08/25 09:31
*Neglect/Abuse Screening Last Done: 03/08/25 09:31
*ED- Fall Risk Assessment Last Done: 03/08/25 09:31
*ED COVID-19 Vaccine History Last Done: 03/08/25 09:31
ED- Neurological Assessment Last Done: 03/08/25 09:31
Discharge Date and Time
Print Language: WELSH
[2025-03-08] MEDS: REGLAN 5 MG IV (13:32)
[2025-03-08] MEDS: BENADRYL 25 MG IV ×2 (13:32→13:59)
--- NOTE | 2025-03-08 13:44 | EDRN ---
this RN entered the pts room to administer medications and the pt got very upset and stated, 'What is that medication Reglan that you're giving me because one time i took Gabapentin and i was sick for months', this RN provided medication information
to the patient regarding Reglan and the pt stated, 'If i get a reaction from this I am going to be very upset', this RN asked if the pt still wanted the medication and the pt stated that she did, this RN administered medication with no s/s of
allergic reaction and the pt then stated to this RN, 'I can't go home like this, i still have pain in my head and they don't know what's wrong? that's unacceptable, i have to stay here until my pain is gone or i have to be admitted', this RN
notified Dr. Benavidez
--- NOTE | 2025-03-08 14:05 | HPS.HSE ---
Family Physician
-
Family Physician: Lance Stokes
Chief Complaint
-
headache
History of Present Illness
79-year-old female with PMH for CVA, HTN, HLD, hypothyroidism presenting with a severe headache that began on Tuesday. patient stated shooting pain to her right side of the neck. when she moves her head, her pain shoot to the back of the ear. denied
dizzy or syncope. denied fever, chills, cough, congestion. Patient denied any chest pain or short of breath. Patient denied any abdominal pain, nausea, vomiting or diarrhea. Patient denied dysuria hematuria.
CTA negative. Admitting for further management
Medical History
Past Medical History
Past Medical History: Reports Other
Additional Past Medical History:
CVA
Hypertension
Diverticulitis
Hyperlipidemia
C. difficile infection
Hypothyroidism
Coloenteric fistula
Past Surgical History: Reports Other
Additional Past Surgical History:
Appendectomy
Robotic sigmoidectomy
Social History
Tobacco: Non-smoker
Alcohol: None
Drug: None
Personal: Single
Living: Alone
Family History
Family History: Not pertinent
Allergies / Home Medications
Allergies reflects when Allergies were last updated in [facility].
Home Medications with original date entered in [facility]
Allergy/Medication List:
Allergies
Allergy/AdvReac Type Severity Reaction Status Date / Time
penicillin V Allergy Hives Verified 02/15/24 15:54
10-12 yrs
ago, MILD
no
anaphylaxis;
OK w/ ceph
saccharin Allergy Anaphylaxis-Throat Verified 02/15/24 15:54
closed
Home Medications
aspirin 81 mg tablet,delayed release 81 mg PO DAILY Blood clot prevention/tx 09/03/20
levothyroxine 50 mcg tablet 50 mcg PO DAILY@0700 Thyroid 09/03/20
loratadine 10 mg tablet 10 mg PO DAILYPRN PRN allergies 09/03/20
omega 7-dag-uuc-fish oil 300 mg-1,000 mg capsule (Fish Oil) 1 ea PO DAILY Supplement 09/08/20
acetaminophen 650 mg tablet,extended release 650 mg PO BIDPRN PRN mild pain/fever 02/15/24
amlodipine 5 mg tablet 5 mg PO HS Blood Pressure 02/15/24
atorvastatin 10 mg tablet 10 mg PO DAILY High Cholesterol 02/15/24
cholecalciferol (vitamin D3) 50 mcg (2,000 unit) tablet 50 mcg PO DAILY Supplement 02/15/24
fluticasone propionate 50 mcg/actuation nasal spray,suspension 2 spray intranasal DAILY Allergies 02/15/24
furosemide 40 mg tablet 20 mg PO DAILY Fluid Retention/Swelling 02/15/24
onabotulinumtoxinA 100 unit solution for injection (Botox) 5 unit SC [id number] Supplement 02/15/24
tizanidine 4 mg tablet 4 mg PO HS Muscle Spasms 02/15/24
valsartan 320 mg tablet 320 mg PO DAILY Blood Pressure 02/15/24
Review of Systems
-
Constitutional: Reports No Symptoms
EENT: Reports No Symptoms
Respiratory: Reports No Symptoms
Cardiac: Reports No Symptoms
Abdomen/GI: Reports No Symptoms
: Reports No Symptoms
Musculoskeletal: Reports No Symptoms
Skin: Reports No Symptoms
Neurological: Reports Headache
Endocrine: Reports No Symptoms
Hematologic/Lymphatic: Reports No Symptoms
Psych: Reports No Symptoms
Physical Exam
Vital Signs
Vital Signs
Temp Pulse Resp BP Pulse Ox
97.6 F 113 20 177/69 96
03/08/25 13:44 03/08/25 13:44 03/08/25 13:44 03/08/25 13:44 03/08/25 13:44
Physical Exam
General: Well Developed, Well Nourished and No Apparent Distress
HEENT: NormoCephalic, Moist mucous membranes and Atraumatic
Respiratory: Clear
Cardiac: S1/S2 and Regular Rhythm; No Murmur or Rub
GI: Soft, Non Tender, Non Distended and Normal Bowel Sounds; No Organomegaly
Rectal: Deferred by Provider
Musculoskeletal: No Clubbing, No Cyanosis and No Edema
Skin: No Rash
Neuro: AO x 3 and Nonfocal/grossly intact
Psych: Calm
Laboratory Results
-
03/08/25 09:41
03/08/25 09:41
Laboratory Results
Total Bilirubin 0.7 mg/dl (0.2-1.3) 03/08/25 09:41
AST 15 U/L (14-36) 03/08/25 09:41
ALT 14 U/L (0-35) 03/08/25 09:41
Alkaline Phosphatase 66 U/L (38-126) 03/08/25 09:41
Data Reviewed
-
CT Scan: Report Reviewed by me
Lab Data: Labs Reviewed by me
Impression/Plan
-
# Intractable headache rule out migraine versus CVA
- CTA head and neck Calcified plaque within both carotid bulbs and proximal ICAs. Likely greater than 50% stenosis on the left.
- Patient received a dose of Benadryl, Reglan, morphine in the ER
- Will obtain MRI
- Aspirin statin continue
- Tylenol p.o. for fever or pain
-consider neuro consult if positive MRI.
#HX prior CVA with residual Rt -sided weakness
- chr ambulatory dysfunction - use RW at home
#Essential HTN
- elevated-likely due to pain
- Norvasc, losartan, furosemide continue
#HLD
- cont Statin
# Hypothyroidism
- cont levothyroxine
Code: Full code
[2025-03-08] MEDS: MORPHINE SULFATE 2 MG IV (14:10)
--- NOTE | 2025-03-08 15:22 | W.PN.UPDATE ---
Update Note
Progress Note Update
This note serves as an addendum to the H&P by lidar scientist Esvinba NIK
HPI�
79F HX CVA, HTN, HLD, hypothyroidism presenting with a severe headache that began on Tuesday.
- shooting pain to her right side of the neck. when she moves her head, her pain shoot to the back of the ear.
- denied dizzy or syncope. denied fever, chills, cough, congestion.
- denied any chest pain or short of breath.
- denied any abdominal pain, nausea, vomiting or diarrhea.
- denied dysuria hematuria.
Relevant�VS:
Temp Pulse Resp BP Pulse Ox
97.6 F 113 20 177/69 96
03/08/25 13:44 03/08/25 13:44 03/08/25 13:44 03/08/25 13:44 03/08/25 13:44
PE
Gen: NAD , not toxic
HEENT: anicteric
Neck: supple , no JVD
Lungs: CTA
Cor: RRR S1 S2
FURNACE CONVERTER: NFND
Psych: anxious
Relevant Data
03/08/25
09:41
MCHC 31.4 L
Lymphocytes % 19.7 L
BUN 28 H
Glucose 117 H
H & N CTA : Calcified plaque within both carotid bulbs and proximal ICAs. Likely greater than 50% stenosis on the left.
ASSESSMENT & PLAN
Intractable headache rule out migraine vs. CVA
- received a dose of Benadryl, Reglan, morphine in the ER
- obtain MRI
- Aspirin statin continue
- Tylenol p.o. for fever or pain
- consider neuro consult if positive MRI.
HX prior CVA with residual Rt -sided weakness
- chr ambulatory dysfunction
- use RW at home
Essential HTN
- elevated-likely due to pain
- Norvasc, losartan, furosemide continue
DVT Px: SCD
Full code
IP MS
--- NOTE | 2025-03-08 15:54 | EDRN ---
this RN called the receiving unit and notified them that paper report was going to be tubed up, this RN also notified the provider of the pts hypertension, no new orders received
--- NOTE | 2025-03-08 16:26 | CM ---
Patient seen bedside in ED. Initial assessment completed. Patient is a 79-year-old female with PMH for CVA, HTN, HLD, hypothyroidism presenting with a severe headache.
Patient lives alone at [facility] apartments. Patient has a 4th floor handicap apartment, no steps, elevator access. Patient is independent w/ the use of a RW. Patient has grab bar and shower chair in the bathroom. Patient was at [facility]
last year for STR, prev known to [facility] last year as well following rehab admission.
Address, points of contact and insurance verified
PCP: Lance Stokes
Pharmacy: [facility]
Plan: CM will cont to follow medical progress for d/c planning
[2025-03-08] MEDS: TYLENOL 650 MG PO (19:12)
--- NOTE | 2025-03-08 19:30 | PTCARENOTE ---
Pt received from day shift RN at 1915. Pt pleasant, AAOx3, VSS, and complains of 10/10 back VIVAS pain. See MAR for pain management. Pt receptive to room and call martinez. Pt bed in lowest position and call martinez within reach. Pt educated on importance of
call martinez usage, pt relays understanding and cooperation. Will continue with current plan of care.
[2025-03-08] MEDS: ZANAFLEX 4 MG PO (21:11)
[2025-03-08] MEDS: NORVASC 5 MG PO (21:15)
[2025-03-09] MEDS: TYLENOL 650 MG PO (02:38)
[2025-03-09] MEDS: SYNTHROID 50 MCG PO (05:44)
[2025-03-09 07:00] VITALS: BP 161/72
[2025-03-09] MEDS: DIOVAN 320 MG PO (07:39)
[2025-03-09] MEDS: ASPIR LOW (ENTERIC COATED) 81 MG PO (07:40)
[2025-03-09] MEDS: LASIX 40 MG PO (07:40)
[2025-03-09] MEDS: LIPITOR 10 MG PO (07:41)
[2025-03-09] MEDS: TORADOL 15 MG IV ×2 (10:02→21:09)
[2025-03-09] MEDS: LIDOCAINE 4% PATCH 1 PATCH TOPICAL (10:30)
[2025-03-09] MEDS: ATIVAN 0.5 MG PO (11:31)
--- NOTE | 2025-03-09 12:05 | W.PN.HOSP.TC ---
Today's Communication/Plan
-
Monitor vital signs
see plan
MRI today
Trial of Toradol
PT
Assessment / Plan
Assessment / Plan
General: Well Developed, Well Nourished and No Apparent Distress
HEENT: NormoCephalic, Moist mucous membranes and Atraumatic
Respiratory: Clear
Cardiac: S1/S2 and Regular Rhythm; No Murmur or Rub
GI: Soft, Non Tender, Non Distended and Normal Bowel Sounds
Musculoskeletal:No Edema
Neuro: AO x 3 and Nonfocal/grossly intact
Psych: Calm
Right-sided headache/ache around upper neck
- CTA head and neck Calcified plaque within both carotid bulbs and proximal ICAs. Likely greater than 50% stenosis on the left. Patient to follow-up with vascular outpatient
Per patient she did not respond well to Benadryl and Reglan in past. try Toradol
- Will obtain MRI
- Aspirin statin continue
- Tylenol p.o. for fever or pain
-consider neuro consult if positive MRI.
#HX prior CVA with residual Rt -sided weakness
- chr ambulatory dysfunction - use RW at home
#Essential HTN
- elevated-likely due to pain
- Norvasc, losartan, furosemide continue
#HLD
- cont Statin
# Hypothyroidism
- cont levothyroxine
Code: Full code
Anticipated Discharge: Within 24 hours
Subjective/Interval History
-
Date of Service: March 09, 2025
has right sided headache/neck pain
Objective Data
-
Vital Signs:
Vital Signs
Temp Pulse Resp BP Pulse Ox
98.1 F 76 18 161/72 93
03/09/25 07:00 03/09/25 07:00 03/09/25 07:00 03/09/25 07:00 03/09/25 07:00
I&O
03/08/25 03/09/25 03/10/25
06:59 06:59 06:59
Intake Total 480 / 480
Balance 480 / 480
[2025-03-09 15:00] VITALS: BP 155/60
[2025-03-09] MEDS: REMOVE LIDOCAINE PATCH 1 PATCH REMOVE (21:09)
[2025-03-09] MEDS: NORVASC 5 MG PO (21:14)
[2025-03-09] MEDS: ZANAFLEX 4 MG PO (21:15)
[2025-03-09 23:03] VITALS: BP 133/62
[2025-03-10] MEDS: SYNTHROID 50 MCG PO (05:30)
[2025-03-10 06:52] LABS: Hematocrit 36.8 % (37.0-47.0); Hemoglobin 12.1 g/dL (12.0-16.0); Mean Corp Hgb Conc. 32.9 g/dL (33.0-37.0); Mean Corpuscular Volume 93.6 fL (81.0-99.0); Platelet Count 205 10^3/uL (130-400); Red Cell Dist. Width 13.5 % (11.5-14.5)
[2025-03-10 07:00] VITALS: BP 151/62
[2025-03-10 07:11] LABS: Blood Urea Nitrogen 25 mg/dl (7-17); Calcium 9.4 mg/dl (8.4-10.2); Carbon Dioxide 27 mmol/L (22-30); Chloride 106 mmol/L (98-107); Estimated Creatinine Clearance 49 ml/min; Glucose 106 mg/dl (70-99); Potassium 4.2 mmol/L (3.5-5.1); Sodium 139 mmol/L (135-145); eGFR 56.60
[2025-03-10] MEDS: LIPITOR 10 MG PO (08:48)
[2025-03-10] MEDS: ASPIR LOW (ENTERIC COATED) 81 MG PO (08:48)
[2025-03-10] MEDS: LASIX 40 MG PO (08:48)
[2025-03-10] MEDS: DIOVAN 320 MG PO (08:48)
[2025-03-10] MEDS: LIDOCAINE 4% PATCH 1 PATCH TOPICAL (08:49)
--- NOTE | 2025-03-10 09:35 | W.PN.HOSP.TC ---
Today's Communication/Plan
-
Monitor vital signs see plan
Symptoms improving
Discharge today
Assessment / Plan
Assessment / Plan
General: Well Developed, Well Nourished and No Apparent Distress
HEENT: NormoCephalic, Moist mucous membranes and Atraumatic
Respiratory: Clear
Cardiac: S1/S2 and Regular Rhythm; No Murmur or Rub
GI: Soft, Non Tender, Non Distended and Normal Bowel Sounds
Musculoskeletal:No Edema
Neuro: AO x 3 and Nonfocal/grossly intact
Psych: Calm
Right-sided headache/ache around upper neck
- CTA head and neck Calcified plaque within both carotid bulbs and proximal ICAs. Likely greater than 50% stenosis on the left. Patient to follow-up with vascular outpatient
Per patient she did not respond well to Benadryl and Reglan in past.
MRI without acute CVA, does show chronic infarct
- Aspirin statin continue
- Tylenol p.o. for fever or pain
Appears musculoskeletal, improving with Toradol
Advised patient to perform heat application and can take NSAID/Tylenol if needed. Advised not to take a lot of NSAIDs
#HX prior CVA with residual Rt -sided weakness
- chr ambulatory dysfunction - use RW at home
#Essential HTN
- elevated-likely due to pain
- Norvasc, losartan, furosemide continue
#HLD
- cont Statin
# Hypothyroidism
- cont levothyroxine
Code: Full code
Anticipated Discharge: Today
Subjective/Interval History
-
Date of Service: March 10, 2025
Pain is improving
Objective Data
-
Labs:
Laboratory Results
03/10/25
06:19
WBC 6.7
Hgb 12.1
Hct 36.8 L
Plt Count 205
Sodium 139
Potassium 4.2
Chloride 106
Carbon Dioxide 27
BUN 25 H
Creatinine 1.0
Glucose 106 H
Calcium 9.4
Vital Signs:
Vital Signs
Temp Pulse Resp BP Pulse Ox
97.8 F 65 18 151/62 95
03/09/25 23:03 03/09/25 23:03 03/09/25 23:03 03/10/25 08:48 03/09/25 23:03
I&O
03/09/25 03/10/25 03/11/25
06:59 06:59 06:59
Intake Total 480 / 480 1560 / 1560
Balance 480 / 480 1560 / 1560
--- NOTE | 2025-03-10 09:39 | W.DCSUMMARY ---
Discharge Summary
Discharge Data
Date of Admission: 03/08/25
Date of Discharge: 03/10/25
-
Pending Results: No
Hospital Course
79-year-old female with past medical history of CVA with residual right-sided weakness, essential hypertension, hyperlipidemia, hypothyroidism came to the hospital with right-sided headache which was also on the right side of his upper neck. CT
initially was done which showed mild calcified plaque within both carotid bulb and proximal ICA. Patient was instructed to follow-up with vascular outpatient. MRI was also done which was negative for CVA. Patient symptoms continue to improve with
Toradol and lidocaine. It was determined that her symptoms could be likely secondary to sprain. Since her symptoms were improving, she was then discharged home with instructions to follow-up with all physicians outpatient.
Discharge Plan
-
Patient Disposition: Home (Routine Discharge)
Discharge Diagnosis/Procedures: Headache
Neck pain
Calcified plaque within both carotid bulb and proximal ICA
Condition: Good
Diet: As tolerated
Activity: As tolerated
Driving Restrictions: As prior to admission
Bathing Restrictions: None
Referrals:
Lance Stokes MD [Family Provider, Family Practice] - in less than 1 week
Colin Lamb MD [Active, Vascular Surgery]
Prescriptions:
New
lidocaine 4 % Adhesive Patch,Medicated
1 patch topical DAILY Qty: 30 0RF
Continued
aspirin 81 MG tablet,delayed release (DR/EC)
81 mg PO DAILY
levothyroxine 50 MCG tablet
50 mcg PO DAILY@0700
loratadine 10 MG tablet
10 mg PO DAILY
omega 2-gfk-gqa-fish oil [Fish Oil] 1 EACH capsule
1 cap PO DAILY
furosemide 40 mg tablet
40 mg PO DAILY
atorvastatin 10 mg tablet
10 mg PO DAILY
tizanidine 4 mg tablet
4 mg PO HS
Botox 100 unit recon soln
5 unit SC [id number]
amlodipine 5 mg tablet
5 mg PO HS
acetaminophen 650 mg Tablet Extended Release
650 mg PO BID
valsartan 320 mg tablet
320 mg PO DAILY
fluticasone propionate 50 mcg/actuation [place],Suspension
2 spray INTRANASAL DAILYPRN PRN (Reason: allergies)
cholecalciferol (vitamin D3) 50 mcg (2,000 unit) Tablet
50 mcg PO DAILY
Discharge Orders:
Discharge Patient (As Directed); Ordered 03/10/25
Ordered By: Moncho Schroeder
Discharge Date and Time
Discharge Date/Time: 03/10/25 12:01
Print Language: WELSH
--- NOTE | 2025-03-10 10:33 | CM ---
Patient for d/c today
No CM needs at this time
Plan: Home, no needs
[2025-03-10 11:00] VITALS: BP 149/61
== END 2025-03-10 12:01 | disposition home or self-care (01) | DRG 552 ==
LOC: 4 WEST ACU 15:15
PROVIDERS: ADMITTING PHYSICIAN Internal Medicine; ATTENDING PHYSICIAN Internal Medicine; EMERGENCY PHYSICIAN Emergency Medicine; FAMILY PHYSICIAN Family Medicine
DX: S13.9XXA Sprain of joints and ligaments of unspecified parts of neck, initial encounter (principal); I69.351 Hemiplegia and hemiparesis following cerebral infarction affecting right dominant side; X58.XXXA Exposure to other specified factors, initial encounter; Y93.9 Activity, unspecified; Y92.9 Unspecified place or not applicable; I65.23 Occlusion and stenosis of bilateral carotid arteries; R51.9 Headache, unspecified; I10 Essential (primary) hypertension; M54.2 Cervicalgia; E78.5 Hyperlipidemia, unspecified; R26.2 Difficulty in walking, not elsewhere classified; E03.9 Hypothyroidism, unspecified; Z60.2 Problems related to living alone; Z90.49 Acquired absence of other specified parts of digestive tract; Z79.82 Long term (current) use of aspirin; Z87.891 Personal history of nicotine dependence; Z79.890 Hormone replacement therapy; Z87.19 Personal history of other diseases of the digestive system; Z88.0 Allergy status to penicillin; Z88.8 Allergy status to other drugs, medicaments and biological substances
CPT/HCPCS: 70496; 70498; 70551; 80048; 80053; 83735; 85025; 85027; 93005; 96374; 96375; 99285; Q9967